=== PATIENT | male | born 1995 | race Caucasian/White ===

== ENCOUNTER 2022-03-11 21:05 | Emergency (ER) | payer MEDICAID, SELFPAY ==
[2022-03-11] MEDS ORDERED: Ibuprofen 200 MG TAB ONE (21:27)
== END 2022-03-11 21:35 | disposition home or self-care (01) ==
LOC: MADERS 21:05
DX: M10.9 Gout, unspecified (principal); F17.290 Nicotine dependence, other tobacco product, uncomplicated
CPT/HCPCS: 99283

== ENCOUNTER 2023-01-05 10:40 | Emergency (ER) | payer SELFPAY | END 2023-01-05 11:48 | disposition home or self-care (01) | LOC: MADERS 10:40 | DX: R21 Rash and other nonspecific skin eruption (principal); F17.210 Nicotine dependence, cigarettes, uncomplicated ==

== ENCOUNTER 2023-02-15 11:06 | Emergency (ER) | payer SELFPAY ==
[2023-02-15] MEDS ORDERED: Tetracaine 0.5% PF 4 ML BOT ONE (11:19)
[2023-02-15] MEDS ORDERED: Fluorescein Opthalmic Strip ONE (11:19)
[2023-02-15] MEDS ORDERED: Ibuprofen 800 MG TAB ONE (11:56)
== END 2023-02-15 12:00 | disposition home or self-care (01) ==
LOC: MADERS 11:06
DX: H16.133 Photokeratitis, bilateral (principal); F17.210 Nicotine dependence, cigarettes, uncomplicated
CPT/HCPCS: 99283

== ENCOUNTER 2023-06-07 18:20 | Emergency (ER) | payer SELFPAY | END 2023-06-07 19:08 | disposition home or self-care (01) | LOC: MADERS 18:20 | DX: S90.32XA Contusion of left foot, initial encounter (principal); F17.210 Nicotine dependence, cigarettes, uncomplicated; W20.8XXA Other cause of strike by thrown, projected or falling object, initial encounter ==